=== PATIENT | female | born 1970 | race Caucasian/White ===

== ENCOUNTER 2017-10-06 10:21 | Day surgery (SDC) | payer OTHER ==
[2017-10-06] MEDS: LR 1,000 ML IV (10:49)
[2017-10-06] MEDS ORDERED: PROPOFOL 200 MG/20 ML VIAL As Ordered ×3 (12:58→12:59)
[2017-10-06] MEDS ORDERED: LIDOCAINE 2% INJ 100 MG/5 ML SDV (FOR ANES.) As Ordered (12:59)
[2017-10-06] MEDS ORDERED: fentaNYL 100 MCG/2 ML INJECTION (J3010) As Ordered (12:59)
[2017-10-06] MEDS ORDERED: MIDAZOLAM INJ 2 MG/2 ML VIAL (J2250) As Ordered ×2 (13:00→13:20)
[2017-10-06] MEDS ORDERED: ONDANSETRON 4MG/2ML VIAL (J2405) As Ordered (13:31)
[2017-10-06] MEDS: dexameTHASONE 4 MG/ML 1ML VIAL (J1100) As Ordered (13:37)
[2017-10-06] MEDS: BUPIVACAINE HCL 0.5% 30 ML VIAL As Ordered (13:37)
[2017-10-06] MEDS: BACITRACIN PWD 50,000 UNITS VIAL As Ordered (13:38)
[2017-10-06] MEDS: NEOSPORIN GU IRRIG 20 ML VIAL As Ordered (13:38)
[2017-10-06] MEDS: LIDOCAINE 2% MDV 20 ML VIAL As Ordered (13:51)
[2017-10-06] MEDS ORDERED: dexameTHASONE 4 MG/ML 1ML VIAL (J1100) As Ordered (14:07)
== END 2017-10-06 15:30 | disposition home or self-care (01) ==
LOC: M SDC 10:21
DX: G57.63 Lesion of plantar nerve, bilateral lower limbs (principal); R22.41 Localized swelling, mass and lump, right lower limb; M72.2 Plantar fascial fibromatosis; R06.83 Snoring; Z78.0 Asymptomatic menopausal state; Z98.51 Tubal ligation status; Z72.0 Tobacco use
CPT/HCPCS: 28080

== ENCOUNTER → 2019-06-06 | Outpatient (CLI) | payer OTHER ==
[2019-06-06 12:02] LABS: BASO # 0.1 10^3/uL (0.0-0.2); BASO % 0.9 % (0.0-1.0); EOS # 0.2 10^3/uL (0.0-0.5); EOS % 3.1 % (0.0-3.0); HEMATOCRIT 42.6 % (36.0-47.0); HEMOGLOBIN 14.1 g/dl (12.0-15.5); LYMPH # 2.2 10^3/uL (1.5-5.0); LYMPH % 33.1 % (24.0-44.0); MEAN CORPUSCULAR HEMOGLOBIN 31.4 pg (27.0-33.0); MEAN CORPUSCULAR HGB CONC 33.1 g/dl (32.0-36.5); MEAN CORPUSCULAR VOLUME 94.9 fl (80.0-96.0); MONO # 0.5 10^3/uL (0.0-0.8); MONO % 7.4 % (0.0-5.0); NEUTROPHILS # 3.7 10^3/uL (1.5-8.5); NEUTROPHILS % 55.2 % (36.0-66.0); PLATELET COUNT, AUTOMATED 340 10^3/uL (150-450); RED BLOOD COUNT 4.49 10^6/uL (4.00-5.40); WHITE BLOOD COUNT 6.8 10^3/uL (4.0-10.0)
[2019-06-06 12:33] LABS: ALT/SGPT 17 U/L (12-78); BILIRUBIN,TOTAL 0.4 MG/DL (0.2-1.0); BLOOD UREA NITROGEN 13 MG/DL (7-18); CALCIUM LEVEL 9.3 MG/DL (8.5-10.1); CARBON DIOXIDE LEVEL 27 MEQ/L (21-32); CHLORIDE LEVEL 107 MEQ/L (98-107); CREATININE FOR GFR 0.73 MG/DL (0.55-1.30); GLOMERULAR FILTRATION RATE > 60.0 (>51); GLUCOSE, FASTING 73 MG/DL (70-100); POTASSIUM SERUM 4.3 MEQ/L (3.5-5.1); SODIUM LEVEL 139 MEQ/L (136-145); TRIGLYCERIDES LEVEL 63 MG/DL (<150)
[2019-06-06 12:34] LABS: CHOLESTEROL LEVEL 222 MG/DL (<200); CHOLESTEROL RISK RATIO 2.522 (<5); FREE T4 1.09 NG/DL (0.76-1.46); HDL CHOLESTEROL 88 MG/DL (>40); LDL CHOLESTEROL 121 MG/DL (<100); NON-HDL-C 134 MG/DL; TOTAL PROTEIN 7.2 GM/DL (6.4-8.2)
== END ==
LOC: M LAB 10:41
PROVIDERS: ATTEND Physician Assistant
DX: E78.2 Mixed hyperlipidemia (principal); Z13.0 Encounter for screening for diseases of the blood and blood-forming organs and certain disorders involving the immune mechanism

== ENCOUNTER 2019-07-27 08:44 | Day surgery (SDC) | payer OTHER ==
[~2019-07-27] VITALS: Ht 180.3 cm; Wt 80.3 kg
[~2019-07-27 08:44] MED LIST: NS 1,000 ML IV ONE
[2019-07-27] MEDS ORDERED: PROPOFOL 200 MG/20 ML VIAL As Ordered ONE ×2 (10:34→10:53)
--- NOTE | 2019-07-27 11:02 | ROOR ---
Patient Name: Sherly Armijo Procedure Date: 07/27/2019 10:19 AM Date of : 1970 Age: 49 Room: [facility] Gender: Female Note Status: Finalized Procedure: Colonoscopy Indications: Screening for colorectal malignant neoplasm Providers: Efrain Mcgarry Jr, MD Referring MD: Sherie BOWMAN DO Requestpedro Provider: Medicines: Propofol per Anesthesia Complications: No immediate complications. Procedure: Pre-Anesthesia Assessment: - Prior to the procedure, a History and Physical was performed, and patient medications and allergies were reviewed. The patient is competent. The risks and benefits of the procedure and the sedation options and risks were discussed with the patient. All questions were answered and informed consent was obtained. Patient identification and proposed procedure were verified by the physician and the nurse in the pre-procedure area and in the procedure room. Mental Status Examination: alert and oriented. Airway Examination: normal oropharyngeal airway and neck mobility. Respiratory Examination: clear to auscultation. CV Examination: normal. ASA Grade Assessment: II - A patient with mild systemic disease. After reviewing the risks and benefits, the patient was deemed in satisfactory condition to undergo the procedure. The anesthesia plan was to use moderate sedation / analgesia (conscious sedation). Immediately prior to administration of medications, the patient was re-assessed for adequacy to receive sedatives. The heart rate, respiratory rate, oxygen saturations, blood pressure, adequacy of pulmonary ventilation, and response to care were monitored throughout the procedure. The physical status of the patient was re-assessed after the procedure. The Colonoscope was introduced through the anus and advanced to the cecum, identified by appendiceal orifice and ileocecal valve. The colonoscopy was performed without difficulty. The patient tolerated the procedure well. The quality of the bowel preparation was adequate. Findings: The rectum, recto-sigmoid colon, descending colon, ascending colon, cecum, appendiceal orifice and ileocecal valve appeared normal. Multiple small-mouthed diverticula were found in the sigmoid colon. A large polyp was found in the transverse colon proximal transverse colon. The polyp was semi-pedunculated. The polyp was removed with a hot snare. The polyp was removed with a piecemeal technique using a hot snare. Polyp resection was incomplete, and the resected tissue was partially retrieved. Area was tattooed with an injection of 1 mL of Spot (carbon black). Impression: - The rectum, recto-sigmoid colon, descending colon, ascending colon, cecum, appendiceal orifice and ileocecal valve are normal. - Diverticulosis in the sigmoid colon. - One large polyp in the transverse colon in the proximal transverse colon, removed with a hot snare and removed piecemeal using a hot snare. Polyp resection was incomplete, and the resected tissue was partially retrieved. Tattooed. Recommendation: - Discharge patient to home (ambulatory). - Return to my office in 1 week. Efrain Mcgarry MD Efrain Mcgarry Jr, MD 07/27/2019 11:02:19 AM Electronically signed by Efrain Mcgarry Jr, MD Number of Addenda: 0 Note Initiated On: 07/27/2019 10:19 AM Estimated Blood Loss: Estimated blood loss: none.
[2019-07-27 11:15] VITALS: BP 119/72
== END 2019-07-27 11:26 | disposition home or self-care (01) ==
LOC: M OPP 08:44
PROVIDERS: ATTEND Surgery
DX: Z12.11 Encounter for screening for malignant neoplasm of colon (principal); D12.3 Benign neoplasm of transverse colon; K57.30 Diverticulosis of large intestine without perforation or abscess without bleeding; F17.210 Nicotine dependence, cigarettes, uncomplicated

== ENCOUNTER → 2020-01-29 | Outpatient (CLI) | payer OTHER ==
[~2020-01-29] MED LIST changes: -NS 1,000 ML IV ONE; +TRAM50TA2 PO; +XANA0.5T PO
[2020-01-29 13:43] LABS: BASO # 0.1 10^3/uL (0.0-0.2); EOS # 0.2 10^3/uL (0.0-0.5); EOS % 2.6 % (0.0-3.0); HEMOGLOBIN 14.1 g/dl (12.0-15.5); LYMPH # 2.3 10^3/uL (1.5-5.0); LYMPH % 37.7 % (24.0-44.0); MEAN CORPUSCULAR HEMOGLOBIN 31.2 pg (27.0-33.0); MEAN CORPUSCULAR HGB CONC 33.6 g/dl (32.0-36.5); MEAN CORPUSCULAR VOLUME 92.9 fl (80.0-96.0); MONO # 0.5 10^3/uL (0.0-0.8); MONO % 8.3 % (0.0-5.0); NEUTROPHILS # 3.1 10^3/uL (1.5-8.5); NEUTROPHILS % 50.1 % (36.0-66.0); PLATELET COUNT, AUTOMATED 322 10^3/uL (150-450); RED BLOOD COUNT 4.52 10^6/uL (4.00-5.40); WHITE BLOOD COUNT 6.2 10^3/uL (4.0-10.0)
[2020-01-29 14:16] LABS: ALBUMIN 3.9 GM/DL (3.2-5.2); ALT/SGPT 18 U/L (12-78); BILIRUBIN,TOTAL 0.6 MG/DL (0.2-1.0); BLOOD UREA NITROGEN 12 MG/DL (7-18); CALCIUM LEVEL 9.2 MG/DL (8.5-10.1); CARBON DIOXIDE LEVEL 26 MEQ/L (21-32); CHLORIDE LEVEL 106 MEQ/L (98-107); CREATININE FOR GFR 0.83 MG/DL (0.55-1.30); GLOMERULAR FILTRATION RATE > 60.0 (>51); GLUCOSE, FASTING 78 MG/DL (70-100); POTASSIUM SERUM 4.2 MEQ/L (3.5-5.1); SODIUM LEVEL 140 MEQ/L (136-145)
== END ==
LOC: M PLALAB 11:27
PROVIDERS: ATTEND Physician Assistant
DX: Z01.818 Encounter for other preprocedural examination (principal)

== ENCOUNTER 2020-02-20 06:05 | Inpatient (IN) | payer OTHER ==
[~2020-02-20] VITALS: Ht 180.3 cm; Wt 67.9 kg
[2020-02-20] VITALS (8 sets, daily range): BP systolic 104–124; BP diastolic 68–80
[~2020-02-20 06:05] MED LIST changes: +LIDOCAINE 1% MDV 20ML VIAL SQ PRN; -TRAM50TA2 PO
[2020-02-20] MEDS ORDERED: BUPIVACAINE HCL 0.25% 10ML VIAL As Ordered ONE (06:57)
[2020-02-20] MEDS ORDERED: BUPIVACAINE LIPOSOME/PF 1.3% 20ML VIAL (13.3MG/ML)(EXPAREL)(C9290 PER1MG) As Ordered ONE (06:57)
[2020-02-20] MEDS ORDERED: GLUCAGON INJ 1MG VIAL As Ordered ONE (06:57)
[2020-02-20] MEDS ORDERED: BUPIVACAINE/EPIN 0.5% 30 ML VIAL As Ordered ONE (06:57)
[2020-02-20] MEDS ORDERED: ERTAPENEM SODIUM 1 GM in NS MINI-BAG PLUS 50 ML IV ONE (07:00)
[2020-02-20] MEDS ORDERED: LR 1,000 ML IV ONE (07:00)
[2020-02-20] MEDS ORDERED: ERTAPENEM 1GM VIAL(INVanz) (J1335 PER 500MG) As Ordered ONE (07:09)
[2020-02-20] MEDS ORDERED: MIDAZOLAM INJ 2MG/2ML VIAL (J2250 PER 1MG) As Ordered ONE (07:16)
[2020-02-20] MEDS ORDERED: LIDOCAINE 2% 100MG/5ML SDV (FOR ANES.) As Ordered ONE (07:16)
[2020-02-20] MEDS ORDERED: propofoL 200 MG/20 ML VIAL As Ordered ONE (07:16)
[2020-02-20] MEDS ORDERED: ONDANSETRON 4MG/2ML VIAL As Ordered ONE (07:16)
[2020-02-20] MEDS ORDERED: SCOPOLAMINE 1MG TRANSDERMAL PATCH As Ordered ONE (07:16)
[2020-02-20] MEDS ORDERED: ROCURONIUM BROMIDE 50 MG/5 ML VIAL As Ordered ONE ×2 (07:16→08:01)
[2020-02-20] MEDS ORDERED: dexameTHASONE 4 MG/ML 1ML VIAL (J1100 PER 1MG) As Ordered ONE (07:16)
[2020-02-20] MEDS ORDERED: fentaNYL 250 MCG/5 ML INJECTION (J3010) As Ordered ONE (07:16)
[2020-02-20] MEDS ORDERED: SCOPOLAMINE 1MG TRANSDERMAL PATCH TOP ONE (07:30)
--- NOTE | 2020-02-20 07:36 | HPE ---
DATE OF ADMISSION: 02/20/2020 HISTORY OF PRESENT ILLNESS: The patient is a 49-year-old female who presents with a hepatic flexure polyp that was diagnosed in July and then attempts at resection of this were entertained by a referral magnetic tape typewriter operator in [place]. Unfortunately, he felt that this was not amenable to removal. The biopsy results revealed adenomatous polyps without dysplasia and the patient has been asymptomatic from this. She has had no other complaints. No nausea. No vomiting. No fevers. No chills. No evidence of obstruction. No evidence of blood per rectum, constipation or diarrhea. She is here for removal of this hepatic flexure tumor. PAST MEDICAL HISTORY: Her past medical history is significant for history of bilateral inguinal hernia repair, history of anxiety, history of right shoulder surgery, history of tubal ligation, history of uterine ablation. MEDICATIONS: - alprazolam - ibuprofen p.r.n. PHYSICAL EXAMINATION: Reveals a 49-year-old female who looks stated age. HEENT is unremarkable. Neck: Supple, without adenopathy. Lungs: Clear to auscultation without crackles, wheeze or rhonchi. Heart is regular without murmur. Abdomen is soft, nondistended, nontender. No guarding. No rebound. No peritoneal signs are appreciated. No splenomegaly. Extremities: Warm and well-perfused. IMPRESSION AND PLAN: The patient has evidence of a hepatic flexure polyp that is not deemed resectable by endoscopic method and recommendations were to proceed with colon resection. The risks as well as benefits have been discussed with the patient at length, those including, but not limited to infection, bleeding, damage to surrounding structures including liver, pancreas and duodenum, possible anastomotic leak, possible need for colostomy, possible incomplete resection of the lesion. The patient understands and would like to proceed with operative intervention as scheduled. The patient will receive mechanical as well as antibiotic bowel prep. She will be placed nothing by mouth (n.p.o.), have a Campuzano placed intraoperatively, be given IV antibiotics preoperatively as well, and plan on operative intervention with a laparoscopic extended right colectomy.
[2020-02-20] MEDS ORDERED: SEVOFLURANE INHAL SOLN 250 ML BTL As Ordered ONE (07:56)
[2020-02-20] MEDS ORDERED: ACETAMINOPHEN 1000MG 100ML IV BTL (OFIRMEV) (J0131 PER 10MG) As Ordered ONE (08:17)
[2020-02-20] MEDS ORDERED: ePHEDrine SULFATE 25 MG/5 ML(5MG/ML) SYRINGE As Ordered ONE (08:17)
[2020-02-20] MEDS ORDERED: HYDROmorphone HCL 2 MG/ML 1ML VIAL (J1170) As Ordered ONE (08:30)
[2020-02-20] MEDS ORDERED: SUGAMMADEX SODIUM 500 MG/5 ML VIAL (BRIDION) As Ordered ONE (08:31)
[2020-02-20] MEDS ORDERED: KETOROLAC 60MG 2ML VIAL As Ordered ONE (08:31)
[2020-02-20] MEDS: NS 1,000 ML IV SCH ×2 (09:42→17:42)
[2020-02-20] MEDS ORDERED: ACETAMINOPHEN TAB 650MG DOSE (2X325MG) PO PRN (09:45)
[2020-02-20] MEDS ORDERED: traMADol 50 MG TAB PO PRN (09:45)
[2020-02-20] MEDS ORDERED: ONDANSETRON 4MG/2ML VIAL IV PRN ×2 (09:45→10:00)
[2020-02-20] MEDS ORDERED: METOCLOPRAMIDE INJ 10MG/2ML VIAL (J2765 PER 1) IV PRN (10:00)
[2020-02-20] MEDS ORDERED: LR 1,000 ML IV SCH (10:00)
[2020-02-20] MEDS ORDERED: oxyCODONE 5MG TAB PO PRN (10:00)
[2020-02-20] MEDS ORDERED: fentaNYL 100 MCG/2 ML INJECTION (J3010) IV PRN (10:00)
[2020-02-20] MEDS ORDERED: HYDROMORPHONE HCL 0.5 MG/ 0.5 ML SYRINGE (J1170 PER 1) IV PRN (10:00)
[2020-02-20] MEDS: traMADol 50 MG TAB PO PRN ×2 (11:29→18:35)
[2020-02-20] MEDS: KETOROLAC 30 MG/ML 1ML VIAL IV SCH ×2 (15:16→21:09)
[2020-02-21] MEDS: traMADol 50 MG TAB PO PRN ×2 (00:47→17:04)
[2020-02-21 02:00] VITALS: BP 124/72
[2020-02-21] MEDS: NS 1,000 ML IV SCH (04:37)
[2020-02-21] MEDS: KETOROLAC 30 MG/ML 1ML VIAL IV SCH ×4 (04:37→21:56)
[2020-02-21 06:00] VITALS: BP 126/72
[2020-02-21 06:13] LABS: HEMATOCRIT 39.2 % (36.0-47.0); HEMOGLOBIN 12.8 g/dl (12.0-15.5); MEAN CORPUSCULAR HEMOGLOBIN 30.9 pg (27.0-33.0); MEAN CORPUSCULAR HGB CONC 32.7 g/dl (32.0-36.5); MEAN CORPUSCULAR VOLUME 94.7 fl (80.0-96.0); PLATELET COUNT, AUTOMATED 268 10^3/uL (150-450); RED BLOOD COUNT 4.14 10^6/uL (4.00-5.40); WHITE BLOOD COUNT 8.7 10^3/uL (4.0-10.0)
[2020-02-21 06:37] LABS: BLOOD UREA NITROGEN 15 MG/DL (7-18); CALCIUM LEVEL 8.3 MG/DL (8.5-10.1); CARBON DIOXIDE LEVEL 25 MEQ/L (21-32); CHLORIDE LEVEL 110 MEQ/L (98-107); CREATININE FOR GFR 0.69 MG/DL (0.55-1.30); GLOMERULAR FILTRATION RATE > 60.0 (>51); GLUCOSE, FASTING 78 MG/DL (70-100); POTASSIUM SERUM 4.8 MEQ/L (3.5-5.1); SODIUM LEVEL 141 MEQ/L (136-145)
[2020-02-21] MEDS ORDERED: ERTAPENEM SODIUM 1 GM in NS MINI-BAG PLUS 50 ML IV ONE (08:00)
[2020-02-21] MEDS: PANTOPRAZOLE 40MG VIAL (C9113 PER 1) IV SCH (08:33)
[2020-02-21 10:00] VITALS: BP 126/71
[2020-02-21 14:00] VITALS: BP 126/72
[2020-02-21 20:26] VITALS: BP 134/75
[2020-02-22] MEDS: traMADol 50 MG TAB PO PRN (02:02)
[2020-02-22] MEDS: KETOROLAC 30 MG/ML 1ML VIAL IV SCH ×2 (05:06→09:38)
[2020-02-22 06:13] VITALS: BP 133/77
[2020-02-22 07:40] LABS: HEMATOCRIT 37.6 % (36.0-47.0); HEMOGLOBIN 12.2 g/dl (12.0-15.5); MEAN CORPUSCULAR HEMOGLOBIN 30.8 pg (27.0-33.0); MEAN CORPUSCULAR HGB CONC 32.4 g/dl (32.0-36.5); MEAN CORPUSCULAR VOLUME 94.9 fl (80.0-96.0); PLATELET COUNT, AUTOMATED 258 10^3/uL (150-450); RED BLOOD COUNT 3.96 10^6/uL (4.00-5.40); WHITE BLOOD COUNT 7.6 10^3/uL (4.0-10.0)
[2020-02-22 07:58] LABS: BLOOD UREA NITROGEN 12 MG/DL (7-18); CALCIUM LEVEL 8.1 MG/DL (8.5-10.1); CARBON DIOXIDE LEVEL 26 MEQ/L (21-32); CHLORIDE LEVEL 109 MEQ/L (98-107); CREATININE FOR GFR 0.66 MG/DL (0.55-1.30); GLOMERULAR FILTRATION RATE > 60.0 (>51); GLUCOSE, FASTING 76 MG/DL (70-100); SODIUM LEVEL 142 MEQ/L (136-145)
[2020-02-22] MEDS: PANTOPRAZOLE 40MG VIAL (C9113 PER 1) IV SCH (09:38)
[2020-02-22] MEDS ORDERED: TRAM50TA2 PO (13:15)
--- NOTE | 2020-04-26 12:55 | RO ---
DATE OF OPERATION: 02/20/2020 PREOPERATIVE DIAGNOSIS: Hepatic flexure polyp. POSTOPERATIVE DIAGNOSIS: Transverse colon polyp. PROCEDURE: Partial colectomy with [id number]-ni-[id number] anastomosis. SURGEON: Efrain Mcgarry MD ACID WASH OPERATOR: Dr. Tanner (provided retraction exposure assistance for the anastomosis and abdominal wall closure) ANESTHESIA: General endotracheal anesthesia. EBL: Minimal. FLUIDS: Crystalloid. BRIEF PROCEDURE SUMMARY: The patient was brought to the operating room, was given general anesthesia. After adequate anesthesia and preoperative antibiotics were given the patient was prepped and draped in usual sterile fashion. The patient had a diagnosed hepatic flexure polyp and had been previously marked with carbon spot marking, in any case after prepping and draping and gaining access into the abdominal cavity in the usual standard fashion, creating first a skin incision in the midline, Veress needle to insufflate to 15 and then 10 mm trocar placed. Additional trocars were placed both in the epigastric and inferior aspect as well as right upper quadrant area to further allow access in mobilization of the colon. There was a great deal of omentum that was adherent to the right colon in this area and even the omentum was stuck down onto the small bowel in this area covering up the transverse colon area. Eventually after elevating the transverse colon and the omentum in this area I was able to see the carbon spot marking that was actually on the right side of the falciform ligament area of the transverse colon and not truly at the hepatic flexure. The hepatic flexure itself did not have any carbon spot marking and no other significant abnormalities in this area. However, it was somewhat of a hepatic flexure that was almost behind the liver edge in the corner and this did need a fair bit of dissection. Thus using retraction, graspers as well as Harmonic scalpel the white line of Toldt along the right-hand side was taken down up toward the hepatic flexure and around the hepatic flexure. The right colon was nicely mobilized. The terminal ileum was mobilized as well in this area. I was not sure whether I would need to take and perform an extended right colectomy or whether I would be able to perform a simple partial colectomy on this individual and thus the reason for the extended dissection of the right colon. Eventually, after bringing this off Gerotas fascia and medially right to the duodenum in this area, this area had been nicely mobilized. However, the transverse colon still needed some work. Thus the omentum was taken off the transverse colon all the way up to almost the splenic flexure and up to the hepatic flexure area. Once this was mobilized the transverse colon came down nicely and was more easily mobilized. There was a nice avascular plane between the stomach and the transverse colon which was mobilized eventually around where the right colon was mostly Kocherized at this time. There was a redundancy in this portion of the hepatic flexure and given its location and presentation I felt it should be amenable to excision/removal. Fortunately I was able to mobilize the left side of the colon almost all the way up to the splenic flexure as well with Harmonic scalpel and once these two sides were very nicely mobile a midline incision was created superior to the umbilicus and the transverse colon was brought out through this site. A portion of the bowel was resected taking care to make sure that vascular supply in this area was adequate but also was able to remove the lesion that was palpated at the appropriate spot in the area that was carbon spotted and the bowel was resected using CHARANJIT staplers. The mesentery was taken with [place] Sound vascular load. Once this was performed [id number] anastomosis with CHARANJIT stapler and then the enterotomy closed with CHARANJIT stapler as well was performed. This was returned to the abdominal cavity. The area was copiously irrigated until clear. Midline incision was closed with running #1 Vicryl and all sites were closed with cora. Dry, sterile dressing was applied. The patient was brought to the recovery room awake, alert, hemodynamically stable. Sponge and needle counts correct x2. MTDD
--- NOTE | 2020-04-26 13:00 | DSES ---
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 PROCEDURES PERFORMED: Laparoscopic partial colectomy (transverse colon). BRIEF HISTORY OF PRESENT ILLNESS: Patient is a 49-year-old female, who presents a hepatic flexure polyp, was diagnosed in July and then attempts at resection were entertained by a referral balance wheel hand filer in [place]. Unfortunately, he was unable to resect this area and the biopsy that was performed revealed adenomatous polyps without dysplasia and fortunately she has been asymptomatic from this, but presents for an un-resectable hepatic flexure polyp. HOSPITAL COURSE SUMMARY: The patient was taken to the Operating Room on 02/20/2020 and underwent a laparoscopic partial colectomy. She tolerated this quite well postoperatively. She was able to increase her activity, increase her diet relatively quickly, and she had excellent pain control with minimal pain medications. She was started on a clear liquid diet and advanced to a regular diet, and was discharged home on her usual medications, which include p.r.n. Xanax for anxiety, however, she was given Tramadol 50 mg tablets 1-2 tablets every 6 hours p.r.n. pain, but in addition may take some Ibuprofen for discomfort as needed. She is to follow-up in my office in one week for suture removal and sooner if there are any questions or concerns, fevers or chills. IKE
== END 2020-02-22 14:24 | disposition home or self-care (01) | DRG 346 ==
LOC: M OR 06:05 → M MS5PR 11:18
PROVIDERS: ADMIT Surgery; ATTEND Surgery
PROC: 0DBL0ZX Excision of Transverse Colon, Open Approach, Diagnostic (ICD-10-PCS; principal; 2020-02-20 07:30)
DX: D12.3 Benign neoplasm of transverse colon (principal)

== ENCOUNTER → 2021-03-15 | Outpatient (CLI) | payer OTHER ==
[~2021-03-15] MED LIST changes: -LIDOCAINE 1% MDV 20ML VIAL SQ PRN; +TRAM50TA2 PO
== END ==
LOC: M LABSMTC 09:29
PROVIDERS: ATTEND Anesthesiology
DX: Z01.812 Encounter for preprocedural laboratory examination (principal); Z11.52 Encounter for screening for COVID-19

== ENCOUNTER 2021-03-20 07:18 | Day surgery (SDC) | payer OTHER ==
[~2021-03-20] VITALS: Ht 180.3 cm; Wt 67.1 kg
[~2021-03-20 07:18] MED LIST changes: +LIDOCAINE 2% 100MG/5ML SDV (FOR ANES.) As Ordered ONE; +propofoL 200 MG/20 ML VIAL As Ordered ONE
--- NOTE | 2021-03-20 09:01 | ROOR ---
Patient Name: Sherly Ambrocio Procedure Date: 03/20/2021 8:37 AM Date of : 1970 Age: 50 Room: [facility] Gender: Female Note Status: Finalized Procedure: Colonoscopy Indications: High risk colon cancer surveillance: Personal history of colonic polyps Providers: Efrain Mcgarry Jr, MD Referring MD: Sherie BOWMAN DO Requesting Provider: Medicines: Propofol per Anesthesia Complications: No immediate complications. Procedure: Pre-Anesthesia Assessment: - Prior to the procedure, a History and Physical was performed, and patient medications and allergies were reviewed. The patient is competent. The risks and benefits of the procedure and the sedation options and risks were discussed with the patient. All questions were answered and informed consent was obtained. Patient identification and proposed procedure were verified by the physician and the nurse in the pre-procedure area and in the procedure room. Mental Status Examination: alert and oriented. Airway Examination: normal oropharyngeal airway and neck mobility. Respiratory Examination: clear to auscultation. CV Examination: normal. ASA Grade Assessment: II - A patient with mild systemic disease. After reviewing the risks and benefits, the patient was deemed in satisfactory condition to undergo the procedure. The anesthesia plan was to use moderate sedation / analgesia (conscious sedation). Immediately prior to administration of medications, the patient was re-assessed for adequacy to receive sedatives. The heart rate, respiratory rate, oxygen saturations, blood pressure, adequacy of pulmonary ventilation, and response to care were monitored throughout the procedure. The physical status of the patient was re-assessed after the procedure. The Colonoscope was introduced through the anus and advanced to the cecum, identified by appendiceal orifice and ileocecal valve. The colonoscopy was performed without difficulty. The patient tolerated the procedure well. The quality of the bowel preparation was adequate. Findings: The rectum, cecum, appendiceal orifice and ileocecal valve appeared normal. Multiple polyps were found in the recto-sigmoid colon, sigmoid colon, descending colon and transverse colon. The polyps were diminutive in size. These polyps were removed with a cold snare. Resection and retrieval were complete. The anastomosis appeared normal. Impression: - The rectum, cecum, appendiceal orifice and ileocecal valve are normal. - Multiple diminutive polyps at the recto-sigmoid colon, in the sigmoid colon, in the descending colon and in the transverse colon, removed with a cold snare. Resected and retrieved. - The colonic anastomosis is normal. Recommendation: - Discharge patient to home (ambulatory). - Repeat colonoscopy in 3 years for surveillance. Procedure Code(s): --- Professional --- 15549, Colonoscopy, flexible; with removal of tumor(s), polyp(s), or other lesion(s) by snare technique Diagnosis Code(s): --- Professional --- Z86.010, Personal history of colonic polyps K63.5, Polyp of colon CPT copyright 2019 [employer]. All rights reserved. The codes documented in this report are preliminary and upon supervisory examiner review may be revised to meet current compliance requirements. Efrain Mcgarry MD Efrain Mcgarry Jr, MD 03/20/2021 9:01:48 AM Electronically signed by Efrain Mcgarry Jr, MD Number of Addenda: 0 Note Initiated On: 03/20/2021 8:37 AM Estimated Blood Loss: Estimated blood loss: none.
[2021-03-20 09:22] VITALS: BP 123/80
== END 2021-03-20 09:24 | disposition home or self-care (01) ==
LOC: M OPP 07:18
PROVIDERS: ATTEND Surgery
DX: K63.5 Polyp of colon (principal); Z86.010 Personal history of colon polyps; Z09 Encounter for follow-up examination after completed treatment for conditions other than malignant neoplasm; Z79.899 Other long term (current) drug therapy; F17.210 Nicotine dependence, cigarettes, uncomplicated

== ENCOUNTER → 2021-10-20 | Outpatient (CLI) | payer OTHER ==
[~2021-10-20] MED LIST changes: -LIDOCAINE 2% 100MG/5ML SDV (FOR ANES.) As Ordered ONE; -propofoL 200 MG/20 ML VIAL As Ordered ONE
== END ==
LOC: M RAD 15:35
PROVIDERS: ATTEND Nurse Practitioner Adult Health
DX: F17.210 Nicotine dependence, cigarettes, uncomplicated (principal)

== ENCOUNTER → 2023-02-01 | Outpatient (CLI) | payer OTHER ==
[~2023-02-01] MED LIST changes: +GASTROGRAFIN SOLUTION 30ML As Ordered ONE; +ISOVUE-370 76% 100ML VIAL As Ordered ONE
[2023-02-01 13:12] LABS: BASO # 0.1 10^3/uL (0.0-0.2); BASO % 0.7 % (0.0-1.0); EOS # 0.2 10^3/uL (0.0-0.5); HEMATOCRIT 39.8 % (36.0-47.0); HEMOGLOBIN 13.6 g/dl (12.0-15.5); LYMPH # 2.2 10^3/uL (1.5-5.0); LYMPH % 30.4 % (24.0-44.0); MEAN CORPUSCULAR HEMOGLOBIN 31.4 pg (27.0-33.0); MEAN CORPUSCULAR HGB CONC 34.2 g/dl (32.0-36.5); MEAN CORPUSCULAR VOLUME 91.9 fl (80.0-96.0); MONO # 0.6 10^3/uL (0.0-0.8); MONO % 8.9 % (2.0-8.0); NEUTROPHILS % 56.7 % (36.0-66.0); PLATELET COUNT, AUTOMATED 328 10^3/uL (150-450); RED BLOOD COUNT 4.33 10^6/uL (4.00-5.40); WHITE BLOOD COUNT 7.1 10^3/uL (4.0-10.0)
[2023-02-01 13:21] LABS: ERYTHROCYTE SEDIMENTATION RATE 11 mm/hr (0-30)
[2023-02-01 13:39] LABS: LIPASE 37 U/L (12-53)
[2023-02-01 13:40] LABS: C REACTIVE PROTEIN QUANTITATIV < 0.40 MG/DL (<1.0)
[2023-02-01 13:41] LABS: ALBUMIN 4.1 G/DL (3.2-5.2); ALKALINE PHOSPHATASE 57 U/L (46-116); ALT/SGPT 18 U/L (7.0-40); AMYLASE 68 U/L (30-118); AST/SGOT 19 U/L (<34); BILIRUBIN,TOTAL 0.8 MG/DL (0.3-1.2); BLOOD UREA NITROGEN 13 MG/DL (9-23); CARBON DIOXIDE LEVEL 25 MMOL/L (20-31); CHLORIDE LEVEL 106 MMOL/L (98-107); CREATININE FOR GFR 0.73 MG/DL (0.55-1.30); GLOMERULAR FILTRATION RATE > 60.0 (>51); GLUCOSE, FASTING 89 MG/DL (60-100); POTASSIUM SERUM 3.8 MMOL/L (3.5-5.1); SODIUM LEVEL 137 MMOL/L (136-145); TOTAL PROTEIN 6.7 G/DL (5.7-8.2)
[2023-02-01 13:54] LABS: HEPATITIS B SURFACE ANTIGEN NEGATIVE (NEGATIVE)
[2023-02-01 14:16] LABS: HEPATITIS B CORE ANTIBODY IGM NEGATIVE (NEGATIVE); HEPATITIS C VIRUS ABY INDEX 0.08 INDEX (<0.8)
== END ==
LOC: M RAD 12:26
PROVIDERS: ATTEND Nurse Practitioner Adult Health
DX: R10.11 Right upper quadrant pain (principal)
CPT/HCPCS: 36415; 74177; 80053; 82150; 82977; 83690; 85025; 85652; 86140; 86705; 86709; 86803; 87340; Q9963; Q9967

== ENCOUNTER → 2023-05-25 | Outpatient (REF) | payer OTHER ==
[~2023-05-25] MED LIST changes: -GASTROGRAFIN SOLUTION 30ML As Ordered ONE; -ISOVUE-370 76% 100ML VIAL As Ordered ONE
== END ==
LOC: M LAB REF 17:22
PROVIDERS: ATTEND Nurse Practitioner Family
DX: R19.7 Diarrhea, unspecified (principal)

== ENCOUNTER → 2023-05-27 | Outpatient (REF) | payer OTHER | LOC: M LAB REF 17:05 | PROVIDERS: ATTEND Nurse Practitioner Adult Health | DX: R19.7 Diarrhea, unspecified (principal) ==

== ENCOUNTER → 2023-07-21 | Outpatient (CLI) | payer OTHER ==
[~2023-07-21] MED LIST changes: +AMIT50TA PO; +DEXA2TA PO; +DEXA4TA PO; +DICY20TA20 PO; +GABA-282 PO; +MORP15TA2 PO; +ONDA4TAB6 PO; +OXYC-517 PO; +TIZA10TA PO
== END ==
LOC: M ONCR 11:13
PROVIDERS: ATTEND General Practice
DX: C79.31 Secondary malignant neoplasm of brain (principal); C79.51 Secondary malignant neoplasm of bone; C19 Malignant neoplasm of rectosigmoid junction; Z71.2 Person consulting for explanation of examination or test findings; Z79.899 Other long term (current) drug therapy; Z87.891 Personal history of nicotine dependence; Z98.51 Tubal ligation status; Z80.8 Family history of malignant neoplasm of other organs or systems

== ENCOUNTER → 2023-07-21 | Outpatient (CLI) | payer OTHER ==
[~2023-07-21] MED LIST changes: +PROHANCE 279.3MG/ML 15ML VIAL As Ordered ONE
== END ==
LOC: M RAD 14:26
PROVIDERS: ATTEND General Practice
DX: C79.51 Secondary malignant neoplasm of bone (principal); C79.31 Secondary malignant neoplasm of brain

== ENCOUNTER → 2023-07-28 | Outpatient (CLI) | payer OTHER ==
[~2023-07-28] VITALS: Ht 180.3 cm; Wt 59.0 kg
[~2023-07-28] MED LIST changes: +DULC10SU2 PR; +MIRA3350 PO; -PROHANCE 279.3MG/ML 15ML VIAL As Ordered ONE; +SENN-186 PO
[2023-07-28 08:14] VITALS: BP 128/77; O2SAT 99
== END ==
LOC: M PAL 08:00
PROVIDERS: ATTEND Nurse Practitioner Adult Health
DX: C79.51 Secondary malignant neoplasm of bone (principal); C79.31 Secondary malignant neoplasm of brain; C19 Malignant neoplasm of rectosigmoid junction; G89.3 Neoplasm related pain (acute) (chronic); I69.359 Hemiplegia and hemiparesis following cerebral infarction affecting unspecified side; K59.00 Constipation, unspecified; Z51.5 Encounter for palliative care; Z79.52 Long term (current) use of systemic steroids; Z79.890 Hormone replacement therapy; Z79.891 Long term (current) use of opiate analgesic; Z79.899 Other long term (current) drug therapy; Z80.8 Family history of malignant neoplasm of other organs or systems; Z87.891 Personal history of nicotine dependence; Z88.1 Allergy status to other antibiotic agents; Z88.2 Allergy status to sulfonamides; Z90.49 Acquired absence of other specified parts of digestive tract; Z98.890 Other specified postprocedural states

== ENCOUNTER 2023-08-06 08:37 | Outpatient (RCR) | payer OTHER ==
[2023-08-11] MEDS ORDERED: COLA100C5 PO (17:38)
[2023-08-11] MEDS ORDERED: NALO25TA PO (17:38)
[2023-08-11] MEDS ORDERED: AMIT50TA PO (17:46)
[2023-08-11] MEDS ORDERED: DEXA4TA PO (17:48)
[2023-08-11] MEDS ORDERED: GABA-282 PO (17:49)
[2023-08-12] MEDS ORDERED: MIRA1POW3 PO (03:42)
[2023-08-12] MEDS ORDERED: SENN8.6T28 PO (03:42)
[2023-08-12] MEDS ORDERED: BISA10SU27 PR (03:42)
== END 2023-08-08 ==
LOC: M ONCR 08:37
PROVIDERS: ATTEND General Practice
DX: Z51.0 Encounter for antineoplastic radiation therapy (principal); C79.51 Secondary malignant neoplasm of bone; C79.31 Secondary malignant neoplasm of brain

== ENCOUNTER 2023-08-19 14:15 | Outpatient (RCR) | payer OTHER ==
[~2023-08-19] VITALS: Ht 180.3 cm; Wt 95.2 kg
[~2023-08-19 14:15] MED LIST changes: +BISA10SU27 PR; +COLA100C5 PO; +MIRA1POW3 PO; +NALO25TA PO; +SENN8.6T28 PO
[2023-08-19] MEDS ORDERED: DICL1PAT6 TOP (17:11)
[2023-08-19] MEDS ORDERED: MORP1SOL5 PO (17:11)
[2023-08-19] MEDS ORDERED: CYMB1CAP5 PO (17:11)
[2023-08-19] MEDS ORDERED: TRAN1DIS4 TOP (17:11)
[2023-08-19] MEDS ORDERED: CYCL10TA20 PO (17:11)
[2023-08-19] MEDS ORDERED: ACET-683 PO (17:11)
[2023-08-19] MEDS ORDERED: LIDO5TD TD (17:11)
[2023-08-19] MEDS ORDERED: FENT1DIS14 TOP (17:11)
[2023-08-20] MEDS ORDERED: ATIV1TAB10 PO (10:54)
[2023-08-20] MEDS ORDERED: ACET-683 PO (10:54)
[2023-08-20] MEDS ORDERED: MORP1SOL5 PO (10:54)
[2023-08-20] MEDS ORDERED: FENT1DIS14 TOP (10:54)
[2023-08-20] MEDS ORDERED: CYCL10TA20 PO (10:54)
[2023-08-20] MEDS ORDERED: LIDO5TD TD (10:54)
[2023-08-20] MEDS ORDERED: TRAN1DIS4 TOP (10:54)
[2023-08-20] MEDS ORDERED: CYMB1CAP5 PO (10:54)
[2023-08-20] MEDS ORDERED: DICL1PAT6 TOP (10:54)
== END 2023-09-08 ==
LOC: M ONCR 14:15
PROVIDERS: ATTEND General Practice
DX: Z51.0 Encounter for antineoplastic radiation therapy (principal); C79.51 Secondary malignant neoplasm of bone; C79.31 Secondary malignant neoplasm of brain